=== PATIENT | male | born 1960 | race Caucasian/White ===

== ENCOUNTER → 2020-08-17 09:18 | Outpatient (BNVA) | payer OTHER, SELFPAY | PROVIDERS: PCP Pediatrics; Visit Provider Hospitalist ==

== ENCOUNTER → 2021-01-05 09:54 | Outpatient (BNVA) | payer OTHER, SELFPAY | PROVIDERS: PCP Pediatrics; Visit Provider Hospitalist | DX: J45.909 Unspecified asthma, uncomplicated (principal) ==

== ENCOUNTER → 2022-05-03 09:34 | Outpatient (BNVA) | payer OTHER, SELFPAY | PROVIDERS: PCP Pediatrics; Visit Provider Hospitalist | DX: Z13.89 Encounter for screening for other disorder (principal) ==

== ENCOUNTER 2023-02-20 09:50 | Outpatient (AMB) | payer OTHER, SELFPAY ==
[2023-02-20 09:57] VITALS: BP 144/90; PULSE 89; O2SAT 98; BMI 37.5
--- NOTE | 2023-02-20 09:57 | MHC.OFFVIS ---
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 He was recently diagnosed with diabetes type 2 he has had significant weight gains. Since he has been diagnosis been trying to lose weight and changing his lifestyle. He is exercising more. He has already lost 7 lb. In the meantime he continues using the Breo. He still have episodes of shortness of breath and wheezing. He typically has a several exacerbations between 2 and 4 exacerbations a year requiring prednisone. Now that his diabetes is concerned about using prednisone. In the meantime the patient does have underlying allergies that may be triggering his asthma. The other triggers include upper respiratory illnesses. At this point will try to phenotype is asthma further but getting additional blood work. Because of his recurrent exacerbations and frequent bronchitis the patient would benefit from starting Daliresp. He had been on it before and tolerated okay. The patient also needs to go undergo blood work to further assess address his obstructive airway phenotype. 06/18/2019 the patient is having a telephone visit. Overall he is feeling better on the budesonide. Has been affecting beneficial to him. He is feeling as wheezy. He still having a cough which is intermittent in nature ovth-rz-wwalafia severity. He did not get prescription for the Advair. I did resend it. He understands that all these medications can result in some degree of muscle spasms like he has had before on the Symbicort. But hopefully the lower dose of the Advair would be tolerable for him. He is concerned about the use of Daliresp. He has GI issues with fatty liver. I reassured him that the Daliresp will be okay to use from the GI perspective. But, since he is doing well on the current therapy will hold off until this virus issue subsides in case he has an adverse effect we can quickly evaluate him. Otherwise patient is without any other complaints. 08/17/2020 the patient is here for pulmonary follow-up visit. He actually had a pretty good year. He was able to continue with the Advair with good results. He did not need the rescue inhaler often nor the nebulizer. However, in the last 3 weeks his symptoms have been getting worse. He started using his nebulizer specially at nighttime because of shortness of breath. He fell audible wheezing and chest tightness. Moderate severity. He has been using his nebulizer therapy on a daily basis. The during the last visit we had talked about different alternatives to prednisone because of his diabetes. The patient was interested in trying Daliresp. However, he did get the medication failed but he has not started as of yet. We had checked his allergies back last year in he did have evidence of allergic reactions to multiple grasses and trees. For his IgE levels for was also elevated. At this point will maximize his respiratory therapy. For will recheck his allergy levels. If the patient is not better or gets worse I did give her prescription for prednisone to he can start. He will have to monitor closely his blood sugars while doing so. 01/05/2021 the patient is here for a pulmonary follow-up visit. Overall the change to the Trelegy inhaler history more effective than the previous Advair. He is feeling less shortness of breath and less chest tightness. He is able to exercise regularly with a clinical provider trainer and also walking his dog. He has not had to use his rescue inhaler as often. However, he is getting hoarseness from the powder inhaled cortical steroid. He is on the higher dose Trelegy inhaler. We did talk about alternatives including switching him to a different compaction. The patient avid have allergy testing done back about a year ago or more. It did demonstrate that he has significant allergies to many things on but in no severity. His IgE levels are elevated. The patient will be a good candidate for Xolair. He does not have any nasal polyps or eczema at this point. He may also be a good candidate for Dupixent. No evidence of any eosinophilia at this time. The patient has been walking. He has been working on his diabetes. In addition to that his blood work demonstrated slightly elevation the sedimentation rate. 05/03/2022 the patient is here for a pulmonary follow-up visit. The patient overall is doing relatively good. He continues on the Trelegy inhaler which appears to be affecting beneficial. He does take the higher dose. He states that usually during the fall winter he tends to have worsening respiratory symptoms. Tends to have increased wheezing. Dhpd-pq-ocosuyeg severity. Usually worse in the morning. Sometimes he has to wake up to gives have a breathing treatment. We talked about potential biologics. Although does not seem like he would need the biologic therapy throughout the year only seasonally. Therefore not a good option for him. I do believe that starting Singulair will be a better option. The patient has had in the past but not for many years. Then will work for him well then. I did encourage him to try it and hopefully can use it seasonally to help him with his asthma symptoms. 02/20/2023 the patient is here for pulmonary follow-up visit. He has had worsening respiratory symptoms. Specially in the morning. Has chest congestion moderate severity and has been having more wheezing. Symmetric like the Trelegy inhaler has been very helpful. He has tried the singular but that caused him to feel anxious so therefore he stopped it. He had has had elevations in his allergies including IgE at the bases. We had spoken about biologics in the past. In view of his ongoing symptoms will be reasonable to consider Xolair. Will go ahead and do additional blood work to assess his allergy levels in addition to that will try him on a different inhaler, Breztri to see this is more effective for him. He regards to his obstructive sleep apnea, the patient has stopped using CPAP for a little bit. But then he started developing worsening daytime drowsiness and felt like his breathing was getting worse. Therefore he is now back to using CPAP regularly. The CPAP therapy has been affecting beneficial and he does try to use it more than 4 hours a night. He needs to get supplies through his [employer] regularly. [facility] Medical History (Updated 05/03/22 @ 19:50 by Evgeny Segal MD) Diabetes JOHNIE on CPAP Chronic allergic rhinitis Asthma Social History (Updated 01/05/21 @ 10:04 by RADHA Fu) Patient Tobacco Use Status: Never used Tobacco Review of Systems Const Denies night sweats ENT Denies change in voice, Denies lip swelling, Denies mouth pain, Reports nasal congestion, Reports nasal discharge and Denies tongue swelling Card Denies chest pain Resp Reports chest congestion, Reports cough and Reports wheezing GI Denies abdominal pain Musc Denies no additional complaints Neuro Denies Neuro-related abnormal movements Psych Denies no additional complaints Yohan/Lymph Denies easy bleeding and Denies lymphadenopathy Aller/Immun Denies lip swelling, Denies tongue swelling and Reports wheezing Physical Exam Vital Signs: Last Vital Signs Pulse 89 02/20/23 09:57 BP 144/90 H 02/20/23 09:57 Pulse Ox 98 02/20/23 09:57 Oxygen Delivery Method Room Air 02/20/23 09:57 BMI result Body Mass Index 37.5 Const General: alert Neck Neck: Yes normal visual inspection, Yes full ROM and Yes no lymphadenopathy Chest Chest palpation & inspection: normal inspection of the chest Resp Auscultation: no wheezes and diminished lung sounds Cardio Rate: regular rate Rhythm: regular rhythm Heart sounds: S1 normal heart sound present and S2 normal heart sound present GI Palpation (GI): Soft to palpation and nontender Auscultation: normal bowel sounds Skin General skin exam: rashes and/or lesions noted Immunizations pneumoc 20-tanner conj-dip cr(PF) 0.5 mL IM syringe Performing Provider: Evgeny Segal MD Performing Location: [facility] [place] [facility] Administered by: Jordyn Kincaid LPN on 02/20/23 10:52 Dose Route Admin Location Dispensed Lot Number Expiration Date [facility] Allergist/Md 0.5 mL IM Left Deltoid 0.5 mL [id number] 11/01/23 0540-5057-50 [employer] VIS Given Date VIS Provided VIS Publication Date 02/20/23 Single Vaccine 22 Eligibility Eligibility Date Funding Source Not [facility] Eligible 02/20/23 Private Assessment & Plan Assessment & Plan (1) Asthma: Code(s): J45.909 - Unspecified asthma, uncomplicated Qualifiers: Asthma complication type: uncomplicated Asthma persistence: persistent Asthma severity: moderate Qualified Code(s): J45.40 - Moderate persistent asthma, uncomplicated (2) Chronic allergic rhinitis: Code(s): J30.9 - Allergic rhinitis, unspecified (3) JOHNIE on CPAP: Code(s): G47.33 - Obstructive sleep apnea (adult) (pediatric); Z99.89 - Dependence on other enabling machines and devices Plan stop Trelegy daily start Breztri 2puff BID stopped Singulair SHANNA as needed Bloodwork/allergy testing Continue Astelin nasal spray continue CPAP Consider Xolair with elevated IgE. F/U Fall Orders: Orders Pneumococcal 20 Immunization Today Z23 - Encounter for immunization Immunoglobulin E Today J30.9 - Allergic rhinitis, unspecified, J45.909 - Unspecified asthma, uncomplicated Rast Allergen Today J30.9 - Allergic rhinitis, unspecified, J45.909 - Unspecified asthma, uncomplicated Complete Blood Count Auto Diff Today J30.9 - Allergic rhinitis, unspecified, J45.909 - Unspecified asthma, uncomplicated Erythrocyte Sedimentation Rate Today J30.9 - Allergic rhinitis, unspecified, J45.909 - Unspecified asthma, uncomplicated Medications: New wqnglewkam-osmquofy-agjciqpnfn 160-9-4.8 mcg/actuation (Breztri Aerosphere) 2 inhalations inhalation BID 30 days 10.7 grams 6RF Discontinued tdwgpcucllz-ukexqmjhj-uhndateb 200-62.5-25 mcg (Trelegy Ellipta) Discontinued Reason: Doctor's Order 1 inh inhalation DAILY 90 days 3 ea 2RF Coding Level of Care Code Est Pt Level 4 (76272) Diagnoses Moderate persistent asthma without complication J45.40 Asthma complication type: uncomplicated Asthma persistence: persistent Asthma severity: moderate Chronic allergic rhinitis J30.9 JOHNIE on CPAP G47.33; Z99.89 Time Spent (min) 17
== END 2023-02-20 10:25 | disposition home or self-care (01) ==
PROVIDERS: PCP Pediatrics; Visit Provider Hospitalist
DX: J45.40 Moderate persistent asthma, uncomplicated (principal); J30.9 Allergic rhinitis, unspecified; G47.33 Obstructive sleep apnea (adult) (pediatric); Z99.89 Dependence on other enabling machines and devices; Z23 Encounter for immunization
CPT/HCPCS: 99214

== ENCOUNTER → 2023-02-20 09:50 | Outpatient (BNVA) | payer OTHER, SELFPAY | PROVIDERS: PCP Pediatrics; Visit Provider Hospitalist | DX: J45.40 Moderate persistent asthma, uncomplicated (principal); J30.9 Allergic rhinitis, unspecified; G47.33 Obstructive sleep apnea (adult) (pediatric); Z99.89 Dependence on other enabling machines and devices; Z23 Encounter for immunization | CPT/HCPCS: 90471; 90677 ==

== ENCOUNTER 2024-11-14 08:33 | Outpatient (AMB) | payer OTHER, SELFPAY ==
--- NOTE | 2024-11-14 08:43 | A.OFFVIS_ITS ---
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 He was recently diagnosed with diabetes type 2 he has had significant weight gains. Since he has been diagnosis been trying to lose weight and changing his lifestyle. He is exercising more. He has already lost 7 lb. In the meantime he continues using the Breo. He still have episodes of shortness of breath and wheezing. He typically has a several exacerbations between 2 and 4 exacerbations a year requiring prednisone. Now that his diabetes is concerned about using prednisone. In the meantime the patient does have underlying al lergies that may be triggering his asthma. The other triggers include upper respiratory illnesses. At this point will try to phenotype is asthma further but getting additional blood work. Because of his recurrent exacerbations and frequent bronchitis the patient would benefit from starting Daliresp. He had been on it before and tolerated okay. The patient also needs to go undergo blood work to further assess address his obstructive airway phenotype. 06/18/2019 the patient is having a telephone visit. Overall he is feeling better on the budesonide. Has been affecting beneficial to him. He is feeling as wheezy. He still having a cough which is intermittent in nature dluo-sh-qrzfrowp severity. He did not get prescription for the Advair. I did resend it. He understands that all these medications can result in some degree of muscle spasms like he has had before on the Symbicort. But hopefully the lower dose of the Advair would be tolerable for him. He is concerned about the use of Juan Jose iresp. He has GI issues with fatty liver. I reassured him that the Daliresp will be okay to use from the GI perspective. But, since he is doing well on the current therapy will hold off until this virus issue subsides in case he has an adverse effect we can quickly evaluate him. Otherwise patient is without any other complaints. 08/17/2020 the patient is here for pulmonary follow-up visit. He actually had a pretty good year. He was able to continue with the Advair with good results. He did not need the rescue inhaler often nor the nebulizer. However, in the last 3 weeks his symptoms have been getting worse. He started using his nebulizer specially at nighttime because of shortness of breath. He fell audible wheezing and chest tightness. Moderate severity. He has been using his nebulizer therapy on a daily basis. The during the last visit we had talked about different alternatives to prednisone because of his diabetes. The patient was interested in trying Daliresp. However, he did get the medication failed but he has not started as of yet. We had checked his allergies back last year in he did have evidence of allergic reactions to multiple grasses and trees. For his IgE levels for was also elevated. At this point will maximize his respiratory therapy. For will recheck his allergy levels. If the patient is not better or gets worse I did give her prescription for prednisone to he can start. He will have to monitor closely his blood sugars while doing so. 01/05/2021 the patient is here for a pulmonary follow-up visit. Overall the change to the Trelegy inhaler history more effective than the previous Advair. He is feeling less shortness of breath and less chest tightness. He is able to exercise regularly with a diabetes trainer and also walking his dog. He has not had to use his rescue inhaler as often. However, he is getting hoarseness from the powder inhaled cortical steroid. He is on the higher dose Trelegy inhaler. We did talk about alternatives including switching him to a different compaction. The patient avid have allergy testing done back about a year ago or more. It did demonstrate that he has significant allergies to many things on but in no severity. His IgE levels are elevated. The patient will be a good candidate for Xolair. He does not have any nasal polyps or eczema at this point. He may also be a good candidate for Dupixent. No evidence of any eosinophilia at this time. The patient has been walking. He has been working on his diabetes. In addition to that his blood work demonstrated slightly elevation the sed imentation rate. 05/03/2022 the patient is here for a pulmonary follow-up visit. The patient overall is doing relatively good. He continues on the Trelegy inhaler which appears to be affecting beneficial. He does take the higher dose. He states that usually during the fall winter he tends to have worsening respiratory symptoms. Tends to have increased wheezing. Nomk-yq-ukryiiyc severity. Usually worse in the morning. Sometimes he has to wake up to gives have a breathing treatment. We talked about potential biologics. Although does not seem like he would need the biologic therapy throughout the year only seasonally. Therefore not a good option for him. I do believe that starting Singulair will be a better option. The patient has had in the past but not for many years. Then will work for him well then. I did encourage him to try it and hopefully can use it seasonally to help him with his asthma symptoms. 02/20/2023 the patient is here for pulmonary follow-up visit. He has had worsening respiratory symptoms. Specially in the morning. Has chest congestion moderate severity and has been having more wheezing. Symmetric like the Trelegy inhaler has been very helpful. He has tried the singular but that caused him to feel anxious so therefore he stopped it. He had has had elevations in his allergies including IgE at the bases. We had spoken about biologics in the past. In view of his ongoing symptoms will be reasonable to consider Xolair. Will go ahead and do additional blood work to assess his allergy levels in addition to that will try him on a different inhaler, Breztri to see this is more effective for him. He regards to his obstructive sleep apnea, the patient has stopped using CPAP for a little bit. But then he started developing worsening daytime drowsiness and felt like his breathing was getting worse. Therefore he is now back to using CPAP regularly. The CPAP therapy has been affecting beneficial and he does try to use it more than 4 hours a night. He needs to get supplies through his [employer] regularly. 11/14/2024 the patient is here for pulmonary follow-up visit. Overall he is doing okay now. Back in August he did develop a URI that resulted in significant respiratory complaints. He started having significant coughing wheezing. He went to urgent care about 3 times. Initially had a chest x-ray that per the patient has reported was told that he was okay. He was initially given steroids. And then subsequently after that he was given additional steroids and antibiotics. Finally he was given his Trelegy back. Once he started the Trelegy started feeling better. He has also had been using a nebulizer. Initially with albuterol and then with DuoNeb. DuoNeb seemed to work a little better for him. Now is back to his baseline. He is back to using the Trelegy daily. Overall the patient is feeling a lot better. I do not have access to the x-ray but is reassuring to know that it was normal. It was done at an urgent care. From a sleep standpoint the patient seems to be doing okay although he has a hard time sleeping. Continues uses nasal therapy for the allergies. Allergies seem to be worse in the spring. Will have him come back in the spring to further assess his symptoms. If he has any issues prior to this he will call for further recommendations. [facility] Medical History (Updated 05/03/22 @ 19:50 by Evgeny Segal MD) Diabetes JOHNIE on CPAP Chronic allergic rhinitis Asthma Social History Patient Tobacco Use Status: Never used Tobacco Review of Systems Const Denies night sweats ENT Denies change in voice, Denies lip swelling, Denies mouth pain, Reports nasal congestion, Reports nasal discharge and Denies tongue swelling Card Denies chest pain Resp Reports cough and Reports wheezing GI Denies abdominal pain Musc Denies no additional complaints Neuro Denies Neuro-related abnormal movements Psych Denies no additional complaints Yohan/Lymph Denies easy bleeding and Denies lymphadenopathy Aller/Immun Denies lip swelling, Denies tongue swelling and Reports wheezing Physical Exam Vital Signs: Last Vital Signs Pulse 114 H 11/14/24 08:44 BP 140/70 H 11/14/24 08:44 Pulse Ox 97 11/14/24 08:44 Oxygen Delivery Method Room Air 11/14/24 08:44 BMI result Body Mass Index 40.2 Const General: alert Neck Neck: Yes normal visual inspection, Yes full ROM and Yes no lymphadenopathy Chest Chest palpation & inspection: normal inspection of the chest Resp Effort & Inspection: normal respiratory effort Auscultation: clear to auscultation bilaterally and no wheezes Cardio Rate: regular rate Rhythm: regular rhythm Heart sounds: S1 normal heart sound present and S2 normal heart sound present GI Palpation (GI): Soft to palpation and nontender Auscultation: normal bowel sounds Skin General skin exam: rashes and/or lesions noted Assessment & Plan Assessment & Plan (1) Asthma: Code(s): J45.909 - Unspecified asthma, uncomplicated Category: Medical Qualifiers: Asthma complication type: uncomplicated Asthma persistence: persistent Asthma severity: moderate Qualified Code(s): J45.40 - Moderate persistent asthma, uncomplicated (2) Chronic allergic rhinitis: Code(s): J30.9 - Allergic rhinitis, unspecified Category: Medical (3) JOHNIE on CPAP: Code(s): G47.33 - Obstructive sleep apnea (adult) (pediatric); Z99.89 - Dependence on other enabling machines and devices Category: Medical Plan Trelegy daily stopped Singulair SHANNA as needed Continue Astelin nasal spray continue CPAP Consider Xolair with elevated IgE. F/U Spring 2025 Coding Level of Care Code Est Pt Level 4 (69123) Diagnoses Moderate persistent asthma without complication J45.40 Asthma complication type: uncomplicated Asthma persistence: persistent Asthma severity: moderate Chronic allergic rhinitis J30.9 JOHNIE on CPAP G47.33; Z99.89 Time Spent (min) 17
[2024-11-14 08:44] VITALS: BP 140/70; PULSE 114; O2SAT 97; BMI 40.2
--- OUTSIDE RECORDS SUMMARY | 2024-11-14 08:53 | XMS_ITS ---
Author Name [facility] Organization Unknown History of Medication Use Medication Directions Dispensed Refills Start Date End Date Stat lidocaine (PF) 100 mg/5 mL (2 %) injection syringe Take 2 mL by injection route. 07/12/2023 active triamcinolone acetonide 40 mg/mL suspension for injection Take 40 mg by injection route. 07/12/2023 active brimonidine 0.2 % eye drops INSTILL 1 DROP INTO LEFT EYE TWICE A DAY 4 completed bromfenac 0.09 % eye drops INSTILL 1 DROP TO RIGHT SURGICAL EYE DAILY X 14 WEEKS POSTOPERATIVELY 4 completed Ozempic 0.25 mg or 0.5 mg (2 mg/3 mL) subcutaneous pen injector 0.25 MG SUBCUTANEOUS INFUSION EVERY WEEK FOR 12 WEEKS ROTATE INJECTION SITES BMI: >40 T2DM HTN 4 completed prednisolone acetate 1 % eye drops,suspension APPLY ONE DROP TO THE LEFT EYE FOUR TIMES DAILY. 4 completed albuterol sulfate 2.5 mg/3 mL (0.083 %) solution for nebulization USE 1 VIAL VIA NEBULIZER EVERY 6 HOURS NEEDED FOR SHORTNESS OF BREATH OR WHEEZING FOR 30 DAYS active albuterol sulfate HFA 90 mcg/actuation aerosol inhaler 2 PUFF INHALED EVERY 6 HOURS NEEDED FOR SHORTNESS OF BREATH OR WHEEZING FOR 90 DAYS active aspirin 325 mg tablet,delayed release TAKE 1 TABLET BY MOUTH DAILY FOR 14 DAYS BEGINNING THE DAY AFTER SURGERY. DIRECTED active atorvastatin 40 mg tablet TAKE 1 TABLET BY MOUTH EVERY DAY active clonazepam 0.5 mg tablet TAKE 1 TABLET BY MOUTH THREE TIMES A DAY NEEDED FOR ANXIETY active FreeStyle Lite Strips T2DM E11.9 TESTING DAILY + WHEN SYMPTOMATIC 90 DAY SUPPLY active losartan 50 mg tablet TAKE 1 TABLET BY MOUTH EVERY DAY active Ozempic 1 mg/dose (4 mg/3 mL) subcutaneous pen injector 1 MG SUBCUTANEOUS INFUSION EVERY WEEK,X30 DAYS, ROTATE INJECTION SITES active Trelegy Ellipta 200 mcg-62.5 mcg-25 mcg powder for inhalation INHALE 1 PUFF DAILY a ctive Problems Problem Status Onset Date Problem Type Date of Resoluti on Source Pain of right knee joint active 2023-07-11 ProblemAct [facility] Osteoarthritis of right knee joint active 2022-08-12 ProblemAct [facility] Encounters Encounter Type Encounter Reason Primary Diagnosis Location Date Ambulatory [facility] [place] 10/06/2023 Ambulatory [facility] [place] 09/01/2023 Ambulatory [facility] [place] 07/13/2023 Ambulatory [facility] [place] 07/12/2023 Ambulatory [facility] [place] 07/12/2023 Ambulatory [facility] [place] 06/15/2023 Ambulatory [facility] [place] 05/20/2023 Ambulatory [facility] [place] 10/01/2022 Ambulatory [facility] [place] 08/12/2022 Ambulatory [facility] [place] 08/12/2022 Ambulatory [facility] [place] 08/04/2022
--- OUTSIDE RECORDS SUMMARY | 2024-11-14 08:53 | XMS_ITS | Clinical Summary ---
Author Organization [facility] Address [address] [place] [address] Care Team Providers Care Dental Associate Name Role Phone Roula Aburto DO Primary Care Provider Allergies No known active allergies Medications Medication Sig Dispensed Refills Start Date End Date Status albuterol (PROVENTIL) (2.5 MG/3ML) 0.083% nebulizer solution TAKE 1 VIAL BY NEBULIZATION EVERY 4 HOURS NEEDED FOR WHEEZING, SHORTNESS OF BREATH OR COUGH. 5 04/19/2017 Active clonazePAM (KLONOPIN) 0.5 MG tablet Take 0.5 mg by mouth 3 (three) times a day as needed. for anxiety 3 06/16/2017 Active DYMISTA 137-50 MCG/ACT SUSP spray/apply 1 spray in each nostril 2 (two) times a day. 11 04/18/2017 Active BREO ELLIPTA 200-25 MCG/INH AEPB INHALE 1 PUFF BY MOUTH EVERY DAY DIRECTED 5 06/23/2017 Active naproxen sodium (ANAPROX) 550 MG tablet TAKE 1 TABLET TWICE A DAY FOR 10 DAYS NEEDED FOR PAIN 0 05/09/2017 Active Acetaminophen-Cod eine 300-30 MG per tablet acetaminophen 300 mg-codeine 30 mg tablet 0 Active azelastine (ASTELIN) 0.1 % nasal spray azelastine 137 mcg (0.1 %) nasal spray aerosol 0 Active budesonide (PULMICORT) 0.5 MG/2ML nebulizer solution USE 1 VIAL VIA NEBULIZER EVERY DAY 0 09/27/2019 Active chlorthalidone (HYGROTON) 25 MG tablet chlorthalidone 25 mg tablet 0 05/12/2021 Active cyclobenzaprine (FLEXERIL) 10 MG tablet cyclobenzaprine 10 mg tablet 0 Active losartan (COZAAR) tablet 50 mg losartan 50 mg tablet 0 04/15/2021 A ctive metFORMIN (GLUCOPHAGE-XR) ER 24 hr tablet 500 mg TAKE 2 TABLETS BY MOUTH TWICE A DAY WITH MEAL. 0 05/14/2021 Active omeprazole (PriLOSEC OTC) 20 MG tablet Take 20 mg by mouth. 0 01/22/2013 Acti ve permethrin (ELIMITE) 5 % cream permethrin 5 % topical cream 0 Active naproxen (NAPROSYN) 500 MG tablet naproxen 500 mg tablet 0 Active metFORMIN (GLUCOPHAGE) tablet 1000 mg Take 1,000 mg by mouth. 0 10/15/2020 Active amoxicillin (AMOXIL) 500 MG tablet Take 4 tabs 1 hour prior to dental procedure 20 tablet 3 06/09/2021 Active Active Problems Problem Noted Date Diagnosed Date Arthritis of knee, right 09/03/2021 Arthritis of knee, right 07/19/2018 History of total left knee replacement (TKR) Family History Medical History Relation Name Comments Cancer Father Relation Name Status Comments Father Social History Tobacco Use Types Packs/Day Years Used Date Smoking Tobacco: Never Assessed Sex and Gender Information Value Date Recorded Sex Assigned at Not on file Gender Identity Not on file Sexual Orientation Not on file Job Start Date Occupation Industry Not on file Not on file Not on file Last Filed Vital Signs Vital Sign Reading Time Taken Comments Blood Pressure - - Pulse - - Temperature - - Respiratory Rate - - Oxygen Saturation - - Inhaled Oxygen Concentration - - Weight 131.5 kg (290 lb) 07/25/2017 9:20 AM EDT Height 193 cm (6' 4 ) 07/25/2017 9:20 AM EDT Body Mass Index 35.3 07/25/2017 9:20 AM EDT Plan of Treatment Health Maintenance Due Date Last Done Comments Hepatitis C Screening 1961 Depression Screening 1973 Preventative Health Evaluation 1979 Colon Cancer Screening (Colonoscopy) 2006 DTap / Tdap / Td (1 - Tdap) 07/27/2021 07/26/2021, 0 08/01/2001 COVID-19 Vaccine ( season) 2023 12/25/2020, 06/11/2020, 05/20/2020 Influenza Vaccine (#1) 2024 1, 12/13/2019, 01/15/2018, Additional history exists RSV Adult > 60+ Yrs or (1 - 1-dose 75+ series) 2036 Pneumococcal Vaccine Aged Out 08/07/2015 No long er eligible based on patient's age to complete this topic Shingrix-Zoster Vaccine Completed 02/18/20, 12/01/2018, 11/20/2018 Hepatitis B Vaccines Aged Out No long er eligible based on patient's age to complete this topic RSV Ped < 20 months Aged Out No longe r eligible based on patient's age to complete this topic Care Teams Dental Associate Relationship Specialty Start Date End Date Roula Aburto DO [address] [place] [id number] PCP - General Pediatrics 06/09/21
== END 2024-11-14 09:09 | disposition home or self-care (01) ==
LOC: HO.HPS 08:40
PROVIDERS: PCP Pediatrics; Visit Provider Hospitalist
DX: J45.40 Moderate persistent asthma, uncomplicated (principal); J30.9 Allergic rhinitis, unspecified; G47.33 Obstructive sleep apnea (adult) (pediatric); Z99.89 Dependence on other enabling machines and devices
CPT/HCPCS: 99214